=== PATIENT | male | born 1970 | race Caucasian/White ===

== ENCOUNTER → 2018-02-28 13:10 | Emergency (ER) | payer BC ==
--- NOTE | 2018-02-28 14:22 | RAD ---
INDICATION: Left knee swelling. TECHNIQUE: 4 views of the left knee were obtained. FINDINGS: There is a small joint effusion present. The bones are in normal alignment. No fracture is seen. There is a large area of slightly heterogeneous calcifications present in the soft tissues posterior to the knee. There is mild osteoarthritic change in the lateral and patellofemoral compartments. The results of this exam were discussed with the referring clinician. IMPRESSION: LARGE AREA OF SOFT TISSUE CALCIFICATIONS ALONG THE POSTERIOR ASPECT OF THE KNEE. THESE ARE NONSPECIFIC ALTHOUGH MAY INDICATE A SOFT TISSUE MASS. RECOMMEND AN MRI OF THE LEFT KNEE WITHOUT AND WITH CONTRAST FOR FURTHER EVALUATION.
--- NOTE | 2018-02-28 16:08 | ED ---
Lower Extremity - HPI Summary HPI Summary: 47-year-old male presents with left knee pain for the past year. He states progressively gotten worse. He states he noticed a mass in his left posterior knee that has been growing. 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 The knee is not giving out. No weakness. No popping or locking. He denies any fevers. No rashes to the area. No weight loss or night sweats. No family history of cancer. Has no medical conditions. Is not a smoker. Pain does not extend into the calf or into the thigh. No family history of blood clots. - History of Current Complaint Chief Complaint: EDExtremityLower Stated Complaint: LT KNEE PAIN Time Seen by Provider: 02/28/18 16:05 Pain Intensity: 10 - Allergies/Home Medications Allergies/Adverse Reactions: Allergies Allergy/AdvReac Type Severity Reaction Status Date / Time No Known Allergies Allergy Verified 02/28/18 13:21 PMH/Surg Hx/FS Hx/Imm Hx Endocrine/Hematology History: Denies: Hx Anticoagulant Therapy, Hx Diabetes, Hx Thyroid Disease Cardiovascular History: Denies: Hx Hypertension, Hx Pacemaker/ICD Respiratory History: Denies: Hx Asthma, Hx Chronic Obstructive Pulmonary Disease (COPD) History: Denies: Hx Renal Disease Neurological History: Denies: Hx Dementia, Hx Seizures Psychiatric History: Denies: Hx Substance Abuse Infectious Disease History: No Infectious Disease History: Denies: Hx Hepatitis, Hx Human Immunodeficiency Virus (HIV), Traveled Outside the [place] in Last 30 Days - Family History Known Family History: Positive: Other - no fam hx of CA - Social History Substance Use Type: Reports: None Review of Systems Negative: Fever Negative: Chest Pain Negative: Shortness Of Breath Positive: Myalgia - left knee pain All Other Systems Reviewed And Are Negative: Yes Physical Exam Triage Information Reviewed: Yes Vital Signs On Initial Exam: Initial Vitals Temp Pulse Resp BP Pulse Ox 98.9 F 106 18 150/103 96 02/28/18 13:19 02/28/18 13:19 02/28/18 13:19 02/28/18 13:19 02/28/18 13:19 Vital Signs Reviewed: Yes Appearance: Positive: Well-Appearing Skin: Positive: Warm, Dry Head/Face: Positive: Normal Head/Face Inspection Eyes: Positive: Normal, Conjunctiva Clear ENT: Positive: Pharynx normal Respiratory/Lung Sounds: Positive: Clear to Auscultation, Breath Sounds Present Cardiovascular: Positive: Normal, RRR Musculoskeletal: Positive: Strength/ROM Intact - left knee, Edema Left - left knee, Other - soft mass felt posterior aspect knee, good pulses, no calf tenderness or edema, pos ballotment, no erythema to knee, sensation grossly intact Neurological: Positive: Normal Psychiatric: Positive: Normal Diagnostics - Vital Signs Vital Signs Temp Pulse Resp BP Pulse Ox 02/28/18 15:18 98 F 74 152/96 100 02/28/18 13:19 98.9 F 106 18 150/103 96 - Laboratory Lab Statement: Any lab studies that have been ordered have been reviewed, and results considered in the medical decision making process. - Radiology knee Xray Interpretation: Positive (See Comments) - IMPRESSION: LARGE AREA OF SOFT TISSUE CALCIFICATIONS ALONG THE POSTERIOR ASPECT OF THE KNEE. THESE ARE NONSPECIFIC ALTHOUGH MAY INDICATE A SOFT TISSUE MASS. RECOMMEND AN MRI OF THE LEFT KNEE WITHOUT AND WITH CONTRAST FOR FURTHER EVALUATION. Radiology Interpretation Completed By: Radiologist Lower Extremity Course/Dx - Course Course Of Treatment: 47-year-old male presents with left knee pain for the past year. He states progressively gotten worse. He states he noticed a mass in his left posterior knee that has been growing. 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 The knee is not giving out. No weakness. No popping or locking. He denies any fevers. No rashes to the area. No weight loss or night sweats. No family history of cancer. Has no medical conditions. Is not a smoker. Pain does not extend into the calf or into the thigh. No family history of blood clots. On exam has edema noted to left knee. Half-mast fell on the posterior aspect of the. Full range of motion knee. Neurovascular intact. X- ray shows right ear soft tissue couple location. Dr. 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 discussed with dr lawson will have follow up for ortho for further evaulation of the mass. discussed this with patient and he agrees to follow up. patient understand and agrees with plan. - Diagnoses Differential Diagnosis/HQI/PQRI: Positive: Fracture (Closed), Sprain, Strain, Other - synovial sarcoma Provider Diagnoses: Left knee pain Discharge - Sign-Out/Discharge Documenting (check all that apply): Discharge/Admit/Transfer - Discharge Plan Condition: Good Disposition: HOME Patient Education Materials: Knee Pain (ED) Referrals: Shelley Gonzalez MD [Medical Doctor] - [facility] [place] [facility] REFERRAL [Outside] Additional Instructions: A referral was given for ortho, give office call tomorrow for appointment as you need further evaulation of this potential mass in your knee ice, elevate take Tylenol or ibuprofen every 6 hours as needed for pain keep in jenise as tolerated Return to ED if develop any new or worsening symptoms - Billing Disposition and Condition Condition: GOOD Disposition: Home
[2018-02-28 16:16] VITALS: BP 160/100
== END | disposition home or self-care (01) ==
LOC: ED 13:10
DX: M25.562 Pain in left knee (principal); M79.9 Soft tissue disorder, unspecified; R60.0 Localized edema
CPT/HCPCS: 99282

== ENCOUNTER 2018-07-23 05:55 | Day surgery (SDC) | payer BC ==
--- NOTE | 2018-07-09 03:41 | HP ---
HISTORY AND PHYSICAL: DATE OF ADMISSION: 07/23/18 He is coming into [facility], 07/23/18 for left knee arthroscopic surgery. CHIEF COMPLAINT: Left knee pain and left knee painful cyst. HISTORY OF PRESENT ILLNESS: The patient has had years of left knee discomfort. He rates it as an 8/10 and he has been functioning with it for many years and this year gotten even worse with pain and limping. We met earlier this year, we did x- rays, we did an MRI scan, and we have now recommended left knee arthroscopic surgery and drainage of the posteromedial popliteal cyst. The x- rays this year have shown some knee arthritis and the x-rays done 07/08/18 show increased left knee arthritis in the medial compartment. PAST MEDICAL HISTORY: The patient is able to walk up two flights of stairs without chest pain, without shortness of breath. No past cancers. No bleeding tendencies. He has not had a heart attack and he has not had chest pain. MEDICATIONS: No daily medications. ALLERGIES: No allergies. FAMILY HISTORY: Negative for cardiac, cancer, and diabetes. SOCIAL HISTORY: He does not smoke. He has 20 to 30 beers per week. Lives with his spouse. He is a madhu. REVIEW OF SYSTEMS: No kidney problems. No liver problems. No stomach or bowel problems. No history of DVT or pulmonary embolism. PHYSICAL EXAMINATION GENERAL: He is well nourished, well developed, not acutely distressed. HEENT: The cranial nerves are grossly intact. The head is NC/AT. LUNGS: Clear. HEART: Regular. S1 and S2 normal. No murmurs or gallops. ABDOMEN: Flat, soft, nontender. There is no organomegaly. EXTREMITIES: Left knee has a large posteromedial popliteal cyst that goes towards the calf. It is firm and it is much softer with knee flexion. The knee has some tenderness at the medial joint line, nontender anteriorly and laterally. MCL and LCL were stable. The Apryl and posterior drawer normal. The thigh is soft and nontender. The calf is nontender. The left knee extension -3 degrees, flexion 110 degrees. Right extension is 0 degrees. IMPRESSION: Left knee medial arthritis, medial meniscal tear, posteromedial popliteal cyst that has innumerable calcific deposits within it. 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 Impression is left knee arthritis, popliteal cyst. PLAN: Left knee arthroscopic surgery and open drainage of the posteromedial popliteal cyst. His questions were answered. Guarantees have not been made about the outcome and we will help him get over the surgical care as well. [id number]/[facility] #: [id number] MTDD
[~2018-07-23 05:55] MED LIST: Buffered Lidocaine 0.9% SYRIN* 5 ML/SYR SYRINGE INTRADERM ONE
[2018-07-23] MEDS ORDERED: Dexamethasone IV* 4 MG/ML 1 ML (4 MG) IV SLOW PU ONE (06:00)
[2018-07-23] MEDS ORDERED: Famotidine IV* 10 MG/ML 2 ML (20 mg) IV ONE (06:00)
[2018-07-23] MEDS ORDERED: ceFAZolin 2 GM PREMIX in ORs 2 GM/50 ML BAG IVPB ONE (06:14)
[2018-07-23] MEDS ORDERED: Buffered Lidocaine 0.9% SYRIN* 5 ML/SYR SYRINGE ONE (06:14)
[2018-07-23] MEDS ORDERED: Dexamethasone IV* 4 MG/ML 1 ML (4 MG) ONE (06:46)
[2018-07-23] MEDS ORDERED: Famotidine IV* 10 MG/ML 2 ML (20 mg) ONE (06:46)
[2018-07-23] MEDS ORDERED: Lidocain 1% EPI 1:100,000 * 30 ML MDV ONE (07:16)
[2018-07-23] MEDS ORDERED: Bupivacaine 0.5% W/EPI SDV* 30 ML VIAL ONE (07:16)
[2018-07-23] MEDS ORDERED: fentaNYL* 50 MCG/ML 2 ML VIAL (100 MCG VIAL) ONE ×3 (07:17→09:54)
[2018-07-23] MEDS ORDERED: Midazolam* 1 MG/ML 2 ML VIAL (2 MG) ONE (07:19)
[2018-07-23] MEDS ORDERED: Propofol* 10 MG/ML 20 ML BTL ONE (07:53)
[2018-07-23] MEDS ORDERED: Lidocaine 2% PF * 5 ML VIAL ONE (07:53)
[2018-07-23] MEDS ORDERED: Ondansetron INJ* 2 MG/ML VIAL ONE (07:53)
[2018-07-23] MEDS ORDERED: Ketorolac INJ* 30 MG/ML 1 ML VIAL ONE (07:53)
[2018-07-23] MEDS ORDERED: Naloxone* 0.4 MG/ML 1 ML VIAL IV PRN (08:14)
[2018-07-23] MEDS ORDERED: DiMENhydriNATE IV* 50 MG/ML VIAL IV PUSH PRN (08:14)
[2018-07-23] MEDS ORDERED: Metoprolol Tartrate IV* 1 MG/ML 5 ML VIAL ONE (08:31)
[2018-07-23] MEDS ORDERED: ceFAZolin 1 GM ADVAN(*) 1 GM in NS 0.9% 50 ML* 50 ML IVPB ONE (09:54)
[2018-07-23] MEDS: fentaNYL* 50 MCG/ML 2 ML VIAL (100 MCG VIAL) IV PRN ×2 (09:55→10:01)
[2018-07-23] MEDS ORDERED: ceFAZolin 1 GM ADVAN(*) 1 GM ADDV.VIAL IVPB ONE (10:15)
[2018-07-23] MEDS ORDERED: oxyCODONE/Acetamin 5/325 MG* TAB ONE (10:19)
[2018-07-23 10:55] VITALS: BP 147/100
--- NOTE | 2018-07-24 05:44 | OP ---
DATE OF OPERATION: 07/23/18 - [facility] DATE OF : 72. SURGICAL CARE: Left knee. SURGEON: Ventura Street MD GRINDER GEAR: PAGE Morales. This help was essential during this case. ANESTHESIOLOGIST: Brendon Burgess MD ANESTHESIA: LMA general. 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 OPERATIVE PROCEDURE: Left knee arthroscopic surgery with partial medial meniscectomy and removal of loose bodies and drainage, and partial removal of the left popliteal cyst. OPERATIVE INDICATION: Knee pain over the last couple of years. COMPLICATIONS: There were no complications. DRAINS: One drain, left knee popliteal cyst region at the end of the case. ESTIMATED BLOOD LOSS: 40 mL. REPLACEMENT: Crystalloid fluids. DESCRIPTION OF PROCEDURE: The patient was brought to the operating room and placed on the operating room table in supine position. Following the administration of the anesthetic, the patient was moved so that his feet were flush at the foot of the table. The left proximal thigh was wrapped with a tourniquet. The left leg was prepped from the tourniquet to the tips of the toes and then draped free and carefully sealed off in the usual fashion for arthroscopic and open surgery of the left knee region. After prepping, draping , and sealing off, we did our universal protocol time-out confirming Arjun Alvarezer and the plan for left knee arthroscopic surgery and drainage of the cyst. We all agreed and we proceeded. The arthroscopy was started without the tourniquet. The knee was first aspirated and the synovial fluid appeared to be clear and gold colored with some blood streaks from the aspiration. The knee was set up for arthroscopy with the arthroscope lateral to the patellar tendon, probe and operating instruments medial to the patellar tendon, and an inflow catheter superomedial to the patella. The incision was also planned posteromedially at the junction of the posterior aspect of the pes tendons and the posterior start of the fascia over the medial gastroc muscle. The knee joint irrigated clear very quickly; however, there was debris within the fluid. The survey of the joint showed that there were areas of synovitis including an area of about little less than a centimeter in diameter round, where the synovium appeared that it might be making some of the cartilaginous material. There were several loose bodies in the left knee, 1 or 2 posterior to the lateral meniscus that came out when we put the knee in a [id number] position. The lateral gutter was overall clear. The lateral femoral condyle, lateral meniscus, lateral tibial plateau satisfactory condition. The ACL and PCL satisfactory overall condition. The medial femoral condyle and medial tibial plateau had lots of cartilage loss including exposed subchondral bone. The medial meniscus was torn up especially mid and posteriorly. Once this pathology was evident, then I proceed with removal of the posterior horn medial meniscus. The lateral compartment was entered briefly with the shaver and suctioned and the loose bodies came forth from underneath the posterolateral meniscus. There was also a loose fragment in the synovium just underneath the patella that was about pea-sized. This was excised as well. Once the surgical care was complete with the arthroscope, then the skin incision was made about 2 inches in length posteromedially. Skin and subcu divided and all the subcu was divided bluntly down to the cyst. The cyst was first aspirated and it was confirmed that it was a cyst. The cyst was then opened with scissors for 2 cm and then the cyst was opened further with [place] retractors. The cyst immediately started to put forth round white pea-sized to peanut-sized loose bodies. There were several 100 of them. Once these were cleaned out, there was another deposit more medially that was lining the cyst cavity and it was more firm and it was mobilized a little bit with a periosteal elevator and then I grabbed one end of it and then dissecting as close to it as I could, this was removed. It was 5 to 6 cm in length x 4 cm in width and 3 cm in depth. It seemed to be the same type of material, but it had coalesced into a firm mass and then stuck to the side of the cyst. The remainder of the cyst was explored digitally going proximally going to the posterior region of the knee, posteromedial femoral condyle and little distally and it was all irrigated with saline. I then inserted the drain and I brought the drain out about 6 cm distal to the cyst opening on the medial calf. The drain was held in with 1 stitch and the posteromedial surgery was closed after the irrigation with 2-0 Vicryl and a running subcuticular absorbable suture and then Steri-Strips. The knee was irrigated with another 4 L of saline irrigation solution, then emptied , then instilled with 0.5% Marcaine with epinephrine 30 mL. The skin portals closed with interrupted 3-0 Surgipro and dressings were then applied of Betadine -soaked release, sterile gauze, sterile Webril, cryotherapy cuff, ABD pads, and a 6-inch Piter bandage loosely applied. The patient will have the drain in for 3 to 6 days and he will proceed with weightbearing as tolerated. The patient was returned to the recovery room in stable and satisfactory condition, having tolerated the procedure very well. 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 [id number]/[facility] #: [id number] TAMELA
== END 2018-07-23 11:22 | disposition home or self-care (01) ==
LOC: OR 05:55
PROVIDERS: ATTEND Orthopaedic Surgery
DX: M17.12 Unilateral primary osteoarthritis, left knee (principal); M23.232 Derangement of other medial meniscus due to old tear or injury, left knee; M71.22 Synovial cyst of popliteal space [Baker], left knee
CPT/HCPCS: 88304; 88311; A9270-GY; J0690; J1100; J1885; J2250; J2405; J2704; J3010; J3490